=== PATIENT | male | born 1965 | race Two or more races ===

== ENCOUNTER 2023-08-19 14:57 | Emergency (ER) | payer BC ==
[~2023-08-19] VITALS: Ht 182.9 cm; Wt 133.4 kg
[2023-08-19] MEDS ORDERED: ELIQUIS2.5 MG PO (15:32)
[2023-08-19] MEDS ORDERED: ELIQUIS5 MG PO (15:35)
[2023-08-19] MEDS ORDERED: TRAZODONE HCL50 MG PO (15:35)
[2023-08-19] MEDS ORDERED: NIFEDIPINE10 M1 PO (15:36)
[2023-08-19] MEDS ORDERED: COZAAR100 MG PO (15:36)
[2023-08-19] MEDS ORDERED: CARVEDILOL12.5 MG (15:37)
[2023-08-19] MEDS ORDERED: TAMS0.4C PO (15:37)
[2023-08-19] MEDS ORDERED: DILTIAZEM HCL 25 MG/5 ML VIAL IV ONE ×2 (16:15→18:15)
[2023-08-19] MEDS ORDERED: 0.9 % SODIUM CHLORIDE 500 ML IV SCH (16:15)
[2023-08-19 16:19] LABS: ABG PH 7.525 (7.35-7.45); ABG PO2 92.9 mmHg (80-100); ABG pCO2 25.7 mmHg (35-45); BASE EXCESS -0.3 mmol/l; SaO2 98.1 %
[2023-08-19 16:20] LABS: BICARBONATE 20.7 mmol/l (23-25); Tco2 21.5 mmol/l
[2023-08-19 16:21] LABS: allen test SATISFACTORY; o2 21 %; puncture site RADIAL RIGHT
[2023-08-19 16:25] LABS: HEMATOCRIT 37.8 % (39.0-48.0); HEMOGLOBIN 13.5 g/dL (13-16.00); MEAN CELL VOLUME 94.9 fL (80.0-100.00); MEAN CORPUSCULAR HGB CONC 35.8 g/dl (32.0-36.0); PLATELET COUNT 261 K/uL (150-450); RED BLOOD COUNT 3.98 M/uL (4.00-6.00); RED CELL DISTRIBUTION WIDTH 13.1 % (11.5-14.5)
[2023-08-19 16:44] LABS: INR 0.99; PARTIAL THROMBOPLASTIN TIME 29.2 SECONDS (22.0-34.0); PROTHROMBIN TIME 10.4 SECONDS (9.0-11.5)
[2023-08-19 16:46] LABS: CALCIUM 8.6 mg/dL (8.5-10.1); CREATININE SERUM 0.65 mg/dL (0.70-1.30); GFR 127.07; POTASSIUM 3.74 mEq/L (3.5-5.1)
[2023-08-19 18:19] LABS: URINE APPEARANCE Clear; URINE BILIRRUBIN Negative (NEGATIVE); URINE BLOOD Trace; URINE COLOR Yellow; URINE GLUCOSE Negative (NEGATIVE); URINE LEUKOCYTE Negative; URINE NITRATE Negative; URINE PROTEIN Negative (NEGATIVE); URINE UROBILINOGEN 0.2 E.U./dl
[2023-08-19 18:20] LABS: URINE BACTERIA 50.3 uL (0.0-1933); URINE EPITHELIAL CELLS 3.8 uL (0.0-38.8); URINE WBC 2.6 uL (0.0-23.2)
== END 2023-08-19 21:43 | disposition home or self-care (01) ==
LOC: ER 14:58
PROVIDERS: General Practice
DX: I48.91 Unspecified atrial fibrillation (principal); R00.2 Palpitations; I10 Essential (primary) hypertension; Z88.2 Allergy status to sulfonamides